=== PATIENT | female | born 1940 | race Caucasian/White ===

== ENCOUNTER 2022-03-20 09:00 | Day surgery (SDC) | payer MEDICARE ==
[~2022-03-20] VITALS: Ht 154.9 cm; Wt 72.5 kg
[2022-03-20] VITALS (12 sets, daily range): BP systolic 114–167; BP diastolic 43–87
[2022-03-20] MEDS ORDERED: Probiotic (09:45)
[2022-03-20] MEDS ORDERED: cefazolin/dext.iso 2gm/100ml 100 ML IV ONE (09:45)
[2022-03-20] MEDS ORDERED: KRIL500C PO (09:45)
[2022-03-20] MEDS ORDERED: ATEN50TA PO (09:45)
[2022-03-20] MEDS ORDERED: LEVO50CA4 PO (09:45)
[2022-03-20] MEDS ORDERED: OMEP20CA16 PO (09:45)
[2022-03-20] MEDS ORDERED: Vitamin D3 (09:45)
[2022-03-20] MEDS ORDERED: LISI-643 PO (09:45)
[2022-03-20] MEDS ORDERED: ASPI-1071 PO (09:45)
[2022-03-20] MEDS ORDERED: LOSA100T57 PO (09:45)
[2022-03-20] MEDS ORDERED: OXYB10TA4 PO (09:45)
[2022-03-20 09:51] LABS: BASOPHILS # (AUTO) 0.1 X10'3 (0-0.2); EOSINOPHILS # (AUTO) 0.2 X10'3 (0-0.9); EOSINOPHILS % (AUTO) 2.9 % (0-6); HEMATOCRIT 37.4 % (35.0-45.0); HEMOGLOBIN 12.5 g/dl (12.0-16.0); LYMPHOCYTES # (AUTO) 2.1 X10'3 (1.1-4.8); LYMPHOCYTES % (AUTO) 32.3 % (21-51); MEAN CORPUSCULAR HEMOGLOBIN 29.6 PG (27.0-31.0); MEAN CORPUSCULAR HGB CONC 33.4 g/dL (33.0-36.5); MEAN CORPUSCULAR VOLUME 88.5 FL (78-98); MEAN PLATELET VOLUME 8.7 FL (7.4-10.4); MONOCYTES # (AUTO) 0.8 X10'3 (0-0.9); MONOCYTES % (AUTO) 11.4 % (2-12); NEUTROPHILS # (AUTO) 3.4 X10'3 (1.8-7.7); NEUTROPHILS % (AUTO) 51.4 % (42-75); PLATELET COUNT 391 X10'3 (140-440); RED BLOOD COUNT 4.23 X10'6 (4.20-5.60); RED CELL DISTRIBUTION WIDTH 13.1 % (11.5-14.5); WHITE BLOOD COUNT 6.6 X10'3 (4.5-11.0)
[2022-03-20 10:00] LABS: ALBUMIN 3.7 G/DL (3.4-5.0); ANION GAP 10 (8-16); BLOOD UREA NITROGEN 20 MG/DL (7-18); CALCIUM 9.2 MG/DL (8.5-10.1); CHLORIDE 106 MMOL/L (99-107); GLUCOSE 97 MG/DL (70-104); POTASSIUM 4.1 MMOL/L (3.5-5.1); SODIUM 141 MMOL/L (135-145); TOTAL CARBON DIOXIDE 24.8 MMOL/L (24-32)
[2022-03-20 10:01] LABS: BUN/CREATININE RATIO 14.6 (6.6-38.0); CREATININE 1.37 MG/DL (0.40-0.90); eGFR 37 ML/MIN
[2022-03-20 10:05] LABS: APTT 27 SECONDS (22-32)
[2022-03-20] MEDS ORDERED: FLU VACC QS2022-23(6MOS UP)/PF 60 MCG/0.5 ML SYRINGE IMVAC ONE (10:15)
[2022-03-20] MEDS ORDERED: midazolam 1 mg/ML 2ml injection ONE ×3 (10:37→12:36)
[2022-03-20] MEDS ORDERED: ceFAZolin 1000mg inj ONE (10:37)
[2022-03-20] MEDS ORDERED: LIDOCAINE 1%/EPI 1:100,000 inj. 10 ML multi-dose vial ONE (10:37)
[2022-03-20] MEDS ORDERED: FENTANYL CITRATE/PF 50 MCG/1 ML VIAL ONE ×3 (10:38→12:36)
--- NOTE | 2022-03-20 13:15 | NUR ---
Pt back from lab technician with left arm sling and with dressing and pressure dressing to left upper chest. No c/o pain at this time. Addendum: 03/20/22 at 1715 by Kj Kamara RN Amended: Links added.
[2022-03-20] MEDS ORDERED: vancomycin/NS 1 GM ADD-VANTAGE 250 ML X 1 DOSE IV ONE (13:40)
[2022-03-20] MEDS ORDERED: HYDROcodone/acetaminophen 10/325mg tab PO PRN (13:40)
[2022-03-20] MEDS ORDERED: HYDROcodone/acetaminophen 5mg/325mg tablet PO PRN (13:40)
--- NOTE | 2022-03-20 15:00 | NUR ---
Left arm continues on left arm and pressure dressing still intact. Addendum: 03/20/22 at 1717 by Kj Kamara RN Amended: Links added.
--- NOTE | 2022-03-20 15:30 | NUR ---
Pt taken via WC to CXR. Addendum: 03/20/22 at 1717 by Kj Kamara RN Amended: Links added.
--- NOTE | 2022-03-20 15:45 | NUR ---
Pt back from getting CXR. Addendum: 03/20/22 at 1717 by Kj Kamara RN Amended: Links added.
[2022-03-20] MEDS ORDERED: acetaminophen 325mg tablet PO ONE (16:05)
== END 2022-03-20 18:05 | disposition home or self-care (01) ==
LOC: SSTAY O 09:00 → EDSEX 09:00 → SSTAY O 18:05
PROVIDERS: ATTEND Internal Medicine Cardiovascular Disease
DX: I49.5 Sick sinus syndrome (principal); Z23 Encounter for immunization; I10 Essential (primary) hypertension; I48.0 Paroxysmal atrial fibrillation; Z79.899 Other long term (current) drug therapy; Z79.01 Long term (current) use of anticoagulants; Z96.643 Presence of artificial hip joint, bilateral; Z82.49 Family history of ischemic heart disease and other diseases of the circulatory system; Z80.42 Family history of malignant neoplasm of prostate; Z80.52 Family history of malignant neoplasm of bladder; Z88.2 Allergy status to sulfonamides; Z88.8 Allergy status to other drugs, medicaments and biological substances; F17.210 Nicotine dependence, cigarettes, uncomplicated; Z98.890 Other specified postprocedural states
CPT/HCPCS: 33208; 36415; 71046; 80048; 85025; 85610; 85730; 90686; 93005; 99152; 99153; C1785; C1894; C1898; G0008; J0690; J2250; J3010; J3370; J3490; J7030

== ENCOUNTER 2022-07-03 09:00 | Outpatient (CLI) | payer MEDICARE ==
[~2022-07-03 09:00] MED LIST: ASPI-1071 PO; ATEN50TA PO; KRIL500C PO; LEVO50CA4 PO; LISI-643 PO; LOSA100T57 PO; OMEP20CA16 PO; OXYB10TA4 PO; Probiotic; Vitamin D3
[2022-07-03] MEDS ORDERED: iohexol 350MG/ML 100ml bottle IV ONE (09:50)
== END 2022-07-03 23:59 | disposition home or self-care (01) ==
LOC: RAD 09:00
PROVIDERS: ATTEND Internal Medicine Cardiovascular Disease
DX: J84.10 Pulmonary fibrosis, unspecified (principal); I48.0 Paroxysmal atrial fibrillation; K76.0 Fatty (change of) liver, not elsewhere classified; I70.0 Atherosclerosis of aorta
CPT/HCPCS: 75572; J3490; Q9967

== ENCOUNTER 2022-11-11 09:58 | Outpatient (CLI) | payer MEDICARE ==
[~2022-11-11 09:58] MED LIST changes: -LOSA100T57 PO; +LOSA100T58 PO
[2022-11-11] MEDS ORDERED: IODIXANOL 320 MG/ML INFUS..BTL 100ML IV ONE (10:22)
== END 2022-11-11 23:59 | disposition home or self-care (01) ==
LOC: RAD 09:58
PROVIDERS: ATTEND Nurse Practitioner Family
DX: I25.10 Atherosclerotic heart disease of native coronary artery without angina pectoris (principal); I48.0 Paroxysmal atrial fibrillation; J98.4 Other disorders of lung; Z91.89 Other specified personal risk factors, not elsewhere classified; Z87.19 Personal history of other diseases of the digestive system; Z95.818 Presence of other cardiac implants and grafts; Z98.890 Other specified postprocedural states
CPT/HCPCS: 75572; J3490; Q9967; 76377